=== PATIENT | male | born 1985 | race Caucasian/White ===

== ENCOUNTER 2017-09-19 20:51 | Emergency (ER) | payer OTHER ==
[2017-09-19] MEDS ORDERED: NS 1,000 ML IV ONE ×3 (21:09→21:45)
[2017-09-19] MEDS ORDERED: ONDANSETRON 4 MG/2 ML VIAL IVP ONE (21:09)
[2017-09-19] MEDS ORDERED: ONDANSETRON 4 MG/2 ML VIAL ONE (21:10)
--- NOTE | 2017-09-19 21:18 | EDPHY ---
H & P Time Seen by Provider: 09/19/17 21:04 HPI/ROS: CHIEF COMPLAINT: Vomiting HISTORY OF PRESENT ILLNESS: Patient's symptoms started day with diarrhea and then yesterday he had body aches and fever. Today temperature up to 103 degrees with multiple episodes of nausea and vomiting. Symptoms still associated with diffuse abdominal cramping and worse with oral intake. No blood in the vomit and no melena but occasional possible streaks of red blood , he is not sure if that is just because of repeated wiping. No foreign travel recently to developing country. No recent antibiotics. REVIEW OF SYSTEMS: Eye: no change in vision ENT: no sore throat Cardiac: no chest pain or syncope Pulmonary: no cough or SOB Abdomen: HPI Musculoskeletal: Diffuse myalgias but no back pain or neck stiffness. Skin: no rash Neuro: no headache Constitutional: no fever : no urinary symptoms A comprehensive 10 point review of systems is otherwise negative aside from elements mentioned in the history of present illness. PAST MEDICAL HISTORY: Depression, shift work disorder, tonsils and adenoids Social history: Negative for drugs or foreign travel General Appearance: Alert and conversant, cooperative. Eyes: No scleral icterus. ENT, Mouth: Slightly dry mucous membranes Respiratory: Normal respiratory effort, breath sounds equal, lungs are clear to auscultation. Cardiovascular: Regular rate and rhythm. Gastrointestinal: Abdomen is soft and non tender. Specifically nontender over McBurney's point. Neurological: Alert, face symmetric, normal motor and sensory in extremities. Skin: Warm and dry, no rashes. Musculoskeletal: No peripheral edema. Normal range of motion of the neck. Psychiatric: Not agitated. Emergency Department course/MDM: Zofran 4 mg IV and normal saline 2 L IV for dehydration and vomiting. CBC and chemistry. He has been having some fatigue recently but no sore throat. Think mononucleosis would be much less likely than acute gastrointestinal a viral or food related illness. On arrival appears dehydrated but does not appear to have acute surgical abdominal process such as appendicitis on exam. 2145: Noted creatinine 1.5 and hematocrit 54, moderately significant dehydration. Will give 3 L IV normal saline total. More nausea, 12.5 mg IV Phenergan given. 2228: Abdomen soft and nontender, plan for discharge if he feels better with hydration and his nausea is resolved. Smoking Status: Never smoked Constitutional: Initial Vital Signs Temperature (C) 36.5 C 05/28/18 20:58 Heart Rate 114 H 09/19/17 20:58 Respiratory Rate 20 09/19/17 20:58 Blood Pressure 126/93 H 09/19/17 20:58 O2 Sat (%) 96 09/19/17 20:58 O2 Delivery Mode Room Air Allergies/Adverse Reactions: No Known Allergies Allergy (Unverified 09/19/17 20:57) Home Medications: Medication Instructions Recorded Lexapro 09/19/17 Modafinil 09/19/17 Medical Decision Making Differential Diagnosis: Differential diagnosis considered for nausea and vomiting including but not limited to gastroenteritis, gastritis, appendicitis, urinary tract infection - Data Points Laboratory Results: Laboratory Results 09/19/17 21:10 09/19/17 21:10 09/19/17 09/19/17 21:10 21:10 WBC 4.59 10^3/uL 10^3/uL (3.80-9.50) RBC 6.20 10^6/uL 10^6/uL (4.40-6.38) Hgb 19.2 g/dL H g/dL (13.7-17.5) Hct 54.5 % H % (40.0-51.0) MCV 87.9 fL fL (81.5-99.8) MCH 31.0 pg pg (27.9-34.1) MCHC 35.2 g/dL g/dL (32.4-36.7) RDW 12.5 % % (11.5-15.2) Plt Count 208 10^3/uL 10^3/uL (150-400) MPV 11.5 fL fL (8.7-11.7) Neut % (Auto) Not Reported Lymph % (Auto) Not Reported [place] % (Auto) Not Reported Eos % (Auto) Not Reported Baso % (Auto) Not Reported Nucleat RBC Rel Count Not Reported Absolute Neuts (auto) Not Reported Absolute Lymphs (auto) Not Reported Absolute Monos (auto) Not Reported Absolute Eos (auto) Not Reported Absolute Basos (auto) Not Reported Absolute Nucleated RBC Not Reported Immature Gran % Not Reported Seg Neutrophils % 40.0 % % Band Neutrophils % 25.0 % % Lymphocytes % 22.0 % % Monocytes % 11.0 % % Eosinophils % 0 % % Basophils % 0 % % Metamyelocytes % 2.0 % % Myelocytes % 0 % % Promyelocytes % 0 % % Blast Cells % 0 % % Immature Gran # Not Reported Absolute Seg Neuts 1.84 10^/uL 10^/uL (1.70-6.50) Absolute Band Neuts 1.15 10^3/uL H 10^3/uL (0.00-0.70) Absolute Lymphocytes 1.01 10^3/uL 10^3/uL (1.00-3.00) Absolute Monocytes 0.50 10^3/uL 10^3/uL (0.30-0.80) Absolute Eosinophils 0.00 10^3/uL L 10^3/uL (0.03-0.40) Absolute Basophils 0.00 10^3/uL L 10^3/uL (0.02-0.10) Absolute Metamyelocyte 0.09 10^3/mL H 10^3/mL (0.00-0.00) Absolute Myelocytes 0.00 10^3/mL 10^3/mL (0.00-0.00) Absolute Promyelocytes 0.00 10^3/uL 10^3/uL (0.00-0.00) Absolute Plasma Cells 0.00 10^3/uL 10^3/uL (0.00-0.00) RBC/WBC/PLT Morphology NORMAL (NORMAL) Absolute Blast Cells 0.00 10^3/uL 10^3/uL (0.00-0.00) Plasma Cells % 0 % % Platelet Estimate ADEQUATE (ADEQ) Sodium 135 mEq/L mEq/L (135-145) Potassium 4.2 mEq/L mEq/L (3.3-5.0) Chloride 94 mEq/L L mEq/L (97-110) Carbon Dioxide 23 mEq/l mEq/l (22-31) Anion Gap 18 mEq/L H mEq/L (8-16) BUN 14 mg/dL mg/dL (7-23) Creatinine 1.5 mg/dL H mg/dL (0.7-1.3) Estimated GFR 55 Glucose 133 mg/dL H mg/dL (70-100) Calcium 9.5 mg/dL mg/dL (8.5-10.4) Medications Given: Discontinued Medications Sodium Chloride (Ns) 1,000 mls @ 0 mls/hr IV ONCE ONE; Wide Open PRN Reason: Protocol Stop: 09/19/17 21:10 Last Admin: 09/19/17 21:12 Dose: 1,000 mls Sodium Chloride (Ns) 1,000 mls @ 0 mls/hr IV EDNOW ONE; Wide Open PRN Reason: Protocol Stop: 09/19/17 21:15 Last Admin: 09/19/17 21:45 Dose: 1,000 mls Sodium Chloride (Ns) 1,000 mls @ 0 mls/hr IV EDNOW ONE; Wide Open PRN Reason: Protocol Stop: 09/19/17 21:46 Last Admin: 09/19/17 21:49 Dose: 1,000 mls Ondansetron HCl (Zofran) 4 mg IVP EDNOW ONE Stop: 09/19/17 21:10 Last Admin: 09/19/17 21:12 Dose: 4 mg Promethazine HCl (Phenergan 25 Mg Prepack #4) 1 btl TAKEHOME EDNOW ONE Stop: 09/19/17 21:36 Last Admin: 09/19/17 21:49 Dose: 1 btl Promethazine HCl (Phenergan) 12.5 mg IVP EDNOW ONE Stop: 09/19/17 21:53 Last Admin: 09/19/17 22:00 Dose: 12.5 mg Departure - Departure Disposition: Home, Routine, Self-Care Clinical Impression: Dehydration Nausea & vomiting Qualifiers: Vomiting type: unspecified Vomiting Intractability: non-intractable Qualified Code(s): R11.2 - Nausea with vomiting, unspecified Condition: Good Instructions: Dehydration (ED), Acute Nausea and Vomiting (ED) Referrals: GILBERT LUCERO [Other] - As per Instructions
[2017-09-19 21:29] LABS: PLATELET COUNT 208 10^3/uL (150-400)
[2017-09-19] MEDS ORDERED: PROMETHAZINE 25 MG PREPACK #4 BTL TAKEHOME ONE (21:35)
[2017-09-19] MEDS ORDERED: PROMETHAZINE HCL 25 MG/ML INJ IVP ONE (21:52)
[2017-09-19] MEDS ORDERED: ACETAMINOPHEN 325 MG TAB PO ONE (22:45)
[2017-09-19] MEDS ORDERED: IBUPROFEN 600 MG TAB PO ONE (22:45)
[2017-09-19 23:44] VITALS: BP 135/87
== END 2017-09-19 23:43 | disposition home or self-care (01) ==
DX: E86.9 Volume depletion, unspecified (principal)
CPT/HCPCS: 96374; J2405; J2550